=== PATIENT | female | born 1945 | race Caucasian/White ===

== ENCOUNTER 2020-03-26 12:44 | Emergency (ER) | payer OTHER, SELFPAY ==
[2020-03-26 13:18] VITALS: BP 132/64; PULSE 68; RESP 18; TEMP 36.6; O2SAT 92; BMI 34.7
--- NOTE | 2020-03-26 13:30 | XR_ITS ---
WS: [id number] PORTABLE CHEST HISTORY: sob COMPARISON: 11/11/2013 Mild elevation of the RIGHT hemidiaphragm similar to prior studies. Mild thickening along the RIGHT f issures. No pneumonia. No pleural effusion. Normal vasculature. Cardiac size: Normal. Mediastinum/Aorta: Mildly ectatic aorta. No osseous abnormality seen. XR/XR chest 1V portable [id number] IMPRESSION: Mild elevation of the RIGHT hemidiaphragm. No pneumonia.
--- NOTE | 2020-03-26 13:30 | XR_ITS ---
WS: [id number] RIGHT KNEE: 3 VIEW(S) TECHNIQUE: AP, oblique(s) and lateral. HISTORY: pain COMPARISON: None available. No fracture or dislocation. No joint space narrowing or osteophytes. No joint effusion. No soft tissue abnormality. XR/XR knee RT 3V* [id number] IMPRESSION: Normal RIGHT knee.
--- NOTE | 2020-03-26 13:30 | ECG_ITS ---
[facility] Test Date: 2020-03-26 Pat Name: Tosha Gonzalez Department: Room: Gender: Female Retail Cosmetics Sales Beauty Advisor: : 1945 Requested By: Florentino Jeffery Order Number: [id number] Luly MD: Robi Little M.D. Measurements Intervals [place] Rate: 74 P: 35 [place]: 226 QRS: -10 QRSD: 79 T: 19 QT: 354 QTc: 395 Interpretive Statements SINUS RHYTHM WITH FIRST DEGREE AV BLOCK INFERIOR MYOCARDIAL INFARCTION [40+ ms Q WAVE AND/OR ST/T ABNORMALITY IN II/aVF], PROBABLY OLD INTERPRETATION BASED ON A DEFAULT AGE OF 40 YEARS No previous ECG available for comparison Electronically Signed On 03-26-2020 22:43:10 LOOSE HAND PACKER by Robi Little M.D. [email or web address] adult care [email or web address]/store/NU/[id number] f
--- NOTE | 2020-03-26 13:30 | XR_ITS ---
WS: [id number] RIGHT HIP HISTORY: pain COMPARISON: 06/17/2014 Right hip: No acute fracture or dislocation. No significant narrowing of the hip joint. No soft tissue abnormality. XR/XR hip RT 2-3V wo/w pel* [id number] IMPRESSION: 1. No hip fracture. 2. No arthritis.
--- NOTE | 2020-03-26 13:33 | W.ED.DIZZY ---
HPI - Dizziness General: Chief Complaint: Dizziness Stated Complaint: SHARP PAINS IN LEGS, LOSING BALANCE Time Seen by Provider: 03/26/20 13:29 History of Present Illness: HPI Narrative: Patient is a 74-year-old female comes to the ED with dizziness and pain in right hip and right knee. Patient has a past medical history of fibromyalgia, hypertension, hyperlipidemia, hypothyroidism. patient says the dizziness started approximately 1 month ago and has continued to get worse. She describes the dizziness as a wobbly feeling and denies any room spinning. Her right knee and right hip pain is nontraumatic and has been going on for a couple months. Denies any recent injury to cause worsening of pain. Patient is also complaining of increased shortness of breath upon exertion and when lying flat. Denies any fever, chills, chest pain, palpitations, nausea/vomiting, abdominal pain, diarrhea, constipation, blood in stool, dysuria or hematuria. She does endorse having some urinary dribbling. Associated symptoms: Denies chest pain, chills, headache(s), nausea, nasal congestion, palpitations or vomiting Associated neuro symptoms: Deny numbness in extremities Review of Systems Const: Denies: fever(s), chills or fatigue Eyes: Denies: change in vision or eye discomfort ENMT: Denies: throat pain, odynophagia, nasal discharge or nasal congestion Card: Reports: dyspnea on exertion and orthopnea; Denies: chest pain, palpitations, edema or swelling of feet/ankles Resp: Reports: dyspnea; Denies: productive cough or non-productive cough GI: Denies: abdominal pain, nausea, vomiting, diarrhea, constipation or hematochezia : Reports: dribbling; Denies: flank pain, dysuria or hematuria Musc: Reports: extremity pain (Right hip and right knee pain.); Denies: neck pain, back pain or extremity swelling Skin/Breast: Denies: rash or new lesions Neuro: Denies: headache(s), numbness in extremities or weakness in extremities Physical Exam Const: COMMON NORMALS: no acute distress, patient oriented x3 and alert GENERAL APPEARANCE: cooperative and comfortable HENMT: COMMON NORMALS: normocephalic HEAD & SCALP: normocephalic MOUTH: Normal oral and palatal mucosa present THROAT: posterior oropharynx normal and uvula midline Eye: COMMON NORMALS: Equal, round and reactive pupils present PUPIL: Yes Equal, round and reactive pupils present Neck/C-Spine: COMMON NORMALS: supple GENERAL: Yes normal visual inspection Resp: COMMON NORMALS: normal respiratory effort, No retractions, No use of accessory muscles and clear to auscultation bilaterally AUSCULTATION: clear to auscultation bilaterally Cardio: COMMON NORMALS: regular rate, S1 normal heart sound present, S2 normal heart sound present, No gallops present (Cardio), No clicks present (Cardio), No murmurs present (Cardio) and Peripheral pulses 2+ throughout RATE: regular rate RHYTHM: abnormal rhythm irregularly irregular HEART SOUNDS: S1 normal heart sound present and S2 normal heart sound present PERIPHERAL PULSES: Peripheral pulses 2+ throughout GI: COMMON NORMALS: Normal to inspection, nondistended, normoactive bowel sounds present, Soft to palpation, non-tender and no masses PALPATION: Yes Soft to palpation : COMMON NORMALS: Yes no CVA tenderness BLADDER/KIDNEY EXAM: Yes no CVA tenderness Back/Pelvis: COMMON NORMALS: no CVA tenderness Extremity: COMMON NORMALS: no pedal edema NARRATIVE EXTREMITY EXAM: Right knee was remarkable for tenderness to palpation all throughout the ED joint. No other significant exam findings. Neurovascular intact. Right hip was tender to the touch but no other significant exam findings seen. Neurovascular intact. GENERAL: Yes normal exam except as noted Neuro: COMMON NORMALS: patient oriented x3, CN's II-XII intact bilaterally, moves all extremities, no focal motor deficits and no sensory deficits noted SENSORIUM/ORIENTATION: Yes alert Skin: GENERAL SKIN EXAM: dry skin Course Vital Signs: Vital signs: Vital Signs Temperature 97.9 F 03/26/20 13:18 Pulse Rate 76 03/26/20 16:33 Respiratory Rate 18 03/26/20 13:18 Blood Pressure 103/68 03/26/20 16:33 Pulse Oximetry 92 03/26/20 16:33 MDM - Dizziness MDM Narrative: Medical decision making narrative: Patient is a 74-year-old female comes to the ED with dizziness, shortness of breath and right knee and right hip pain. Patient has a past medical history of fibromyalgia, hyperlipidemia, GERD, hypertension. On exam patient appeared to be in no acute distress or pain. Patient denied any fever, chills, chest pain and said that her shortness of breath is chronic issue along with her right knee and right hip pain. She says she has had episodes of feeling off balance lately. CBC was unremarkable. Patient had a creatinine of 1.6 and rest of CMP is unremarkable. I am unaware of patient's history of labs so not sure what her creatinine baseline level is. X-ray of right hip and knee showed no acute fractures or findings. CT of head showed no acute findings. Chest x-ray showed no acute findings. EKG showed sinus rhythm with first-degree AV block and no ST segment elevation or depression seen. Troponins negative vitals stable and patient is safe to be discharged home. Patient was told to have her creatinine level checked again at her PCP in 3 to 5 days. Follow-up with PCP 7 to 10 days for reevaluation. Drink plenty of fluids and stay hydrated. Return to ED precautions given. Patient understood and agreed with plan. Lab Data: Attestation: I reviewed the patient's lab results. Labs: Lab Results 03/26/20 03/26/20 03/26/20 Range/Units 14:05 14:05 14:05 WBC 11.7 H (4.0-10.0) 10^3/ uL RBC 4.10 (4.1-5.3) 10^6/u L Hgb 12.5 (11.5-15.3) g/dL Hct 38.9 (37.0-47.0) % MCV 94.9 (81-99) fL MCH 30.5 (28.0-34.0) pg MCHC 32.1 (30.0-36.0) g/dL RDW 12.9 (12.1-15.1) % Plt Count 285 (130-400) 10^3/c mm MPV 9.4 (7.4-10.4) fL Neut % (Auto) 69.5 % Lymph % (Auto) 19.1 % Shelby % (Auto) 6.8 % Eos % (Auto) 3.7 % Baso % (Auto) 0.5 % Neut # (Auto) 8.13 H (1.8-7.7) 10^3/u L Lymph # (Auto) 2.2 (0.8-4.8) 10^3/u L Shelby # (Auto) 0.8 (0.2-0.9) 10^3/u L Eos # (Auto) 0.4 (0.0-0.8) 10^3/u L Baso # (Auto) 0.1 (0.0-0.1) 10^3/u L Nucleated RBC % (a uto) 0 % Nucleated RBCs # 0.0 /100WBC Sodium 133 L (136-145) mmol/L Potassium 5.1 (3.5-5.1) mmol/L Chloride 98 (98-107) mmol/L Carbon Dioxide 27 (22-29) mmol/L Anion Gap 13.1 (5-19) BUN 36 H (8-23) mg/dL Creatinine 1.6 H (0.5-0.9) mg/dL GFR Calculation Not Reportable Glucose 93 (65-115) mg/dL Calculated Osmolal ity 284 L (285-295) mOsm/k g Calcium 9.7 (8.5-10.5) mg/dL Total Bilirubin 0.4 (0.15-1.2) mg/dL AST 27 (0-32) U/L ALT 26 (0-33) U/L Alkaline Phosphata se 67 (35-105) IU/L Troponin T Baselin e 12 H (0-10) ng/L Troponin T 120 Min [place] (0-10) ng/L Delta Troponin T (0-10) ABS# NT-Pro-B Natriuret Pep 60 (0-450) pg/mL Total Protein 6.5 L (6.6-8.7) g/dL Albumin 4.0 (3.5-5.2) g/dL Globulin 2.5 (1.3-4.6) g/dL Urine Color (Yellow) Urine Appearance (CLEAR) Urine pH (5-7) Ur Specific Gravit y (1.005-1.030) Urine Protein (Negative) Urine Glucose (UA) (Normal) Urine Ketones (Negative) Urine Blood (Negative) Urine Nitrate (Negative) Urine Bilirubin (Negative) Urine Urobilinogen (Negative) mg/dL Ur Leukocyte Sherice ase (Negative) Urine RBC (0-2) /hpf Urine WBC (0-5) /hpf Ur Squamous Epith Cells (0-5) /hpf Amorphous Sediment Urine Bacteria (NONE) /hpf 03/26/20 03/26/20 Range/Units 14:20 14:33 WBC (4.0-10.0) 10^3/ uL RBC (4.1-5.3) 10^6/u L Hgb (11.5-15.3) g/dL Hct (37.0-47.0) % MCV (81-99) fL MCH (28.0-34.0) pg MCHC (30.0-36.0) g/dL RDW (12.1-15.1) % Plt Count (130-400) 10^3/c mm MPV (7.4-10.4) fL Neut % (Auto) % Lymph % (Auto) % Shelby % (Auto) % Eos % (Auto) % Baso % (Auto) % Neut # (Auto) (1.8-7.7) 10^3/u L Lymph # (Auto) (0.8-4.8) 10^3/u L Shelby # (Auto) (0.2-0.9) 10^3/u L Eos # (Auto) (0.0-0.8) 10^3/u L Baso # (Auto) (0.0-0.1) 10^3/u L Nucleated RBC % (a uto) % Nucleated RBCs # /100WBC Sodium (136-145) mmol/L Potassium (3.5-5.1) mmol/L Chloride (98-107) mmol/L Carbon Dioxide (22-29) mmol/L Anion Gap (5-19) BUN (8-23) mg/dL Creatinine (0.5-0.9) mg/dL GFR Calculation Glucose (65-115) mg/dL Calculated Osmolal ity (285-295) mOsm/k g Calcium (8.5-10.5) mg/dL Total Bilirubin (0.15-1.2) mg/dL AST (0-32) U/L ALT (0-33) U/L Alkaline Phosphata se (35-105) IU/L Troponin T Baselin e (0-10) ng/L Troponin T 120 Min [place] 11.49 H (0-10) ng/L Delta Troponin T -0.51 L (0-10) ABS# NT-Pro-B Natriuret Pep (0-450) pg/mL Total Protein (6.6-8.7) g/dL Albumin (3.5-5.2) g/dL Globulin (1.3-4.6) g/dL Urine Color Yellow (Yellow) Urine Appearance Clear (CLEAR) Urine pH 5 (5-7) Ur Specific Gravit y 1.010 (1.005-1.030) Urine Protein Neg (Negative) Urine Glucose (UA) Norm (Normal) Urine Ketones Negative (Negative) Urine Blood Neg (Negative) Urine Nitrate Negative (Negative) Urine Bilirubin Neg (Negative) Urine Urobilinogen Norm (Negative) mg/dL Ur Leukocyte Sherice ase Negative (Negative) Urine RBC 0-4 H (0-2) /hpf Urine WBC 0-4 H (0-5) /hpf Ur Squamous Epith Cells 0-4 H (0-5) /hpf Amorphous Sediment Not Reportable Urine Bacteria 1+ H (NONE) /hpf Imaging Data^: CXR: Attestation: I personally reviewed and interpreted this imaging study as follows: Radiologist's impression: [address] [address] XRay Report Signed Patient: Tosha Gonzalez Unit #: [id number] : 1945 Age/Sex: 74 / F ADM Date: 03/26/20 Loc: ER Room/Bed: Attending Dr: Ordering Provider/Ordering MD: Florentino Jeffery Date of Service: 03/26/20 Procedure(s): XR chest 1V portable [id number] Accession Number(s): [id number] Report Number: [id number] WS: [id number] PORTABLE CHEST HISTORY: sob COMPARISON: 11/11/2013 Mild elevation of the RIGHT hemidiaphragm similar to prior studies. Mild thickening along the RIGHT fissures. No pneumonia. No pleural effusion. Normal vasculature. Cardiac size: Normal. Mediastinum/Aorta: Mildly ectatic aorta. No osseous abnormality seen. XR/XR chest 1V portable [id number] IMPRESSION: Mild elevation of the RIGHT hemidiaphragm. No pneumonia. Dictated By: Roselyn Romero DO Signed By: Roselyn Romero DO Signed Date/Time: 03/26/20 1408 DD/ 06 Xray Ortho: Attestation: I personally reviewed and interpreted this imaging study as follows: Radiologist's impression: [email or web address] [address] [place] [address]. [place] [address] XRay Report Signed Patient: Tosha Gonzalez Unit #: [id number] : 1945 Age/Sex: 74 / F ADM Date: 03/26/20 Loc: ER Room/Bed: Attending Dr: Ordering Provider/Ordering MD: Florentino Jeffery Date of Service: 03/26/20 Procedure(s): XR knee RT 3V* [id number] Accession Number(s): [id number] Report Number: [id number] WS: [id number] RIGHT KNEE: 3 VIEW(S) TECHNIQUE: AP, oblique(s) and lateral. HISTORY: pain COMPARISON: None available. No fracture or dislocation. No joint space narrowing or osteophytes. No joint effusion. No soft tissue abnormality. XR/XR knee RT 3V* [id number] IMPRESSION: Normal RIGHT knee. Dictated By: Roselyn Romero DO Signed By: Roselyn Romero DO Signed Date/Time: 03/26/201407 DD/ [address] [employer] [place] [address] XRay Report Signed Patient: Tosha Gonzalez Unit #: [id number] : 1945 Age/Sex: 74 / F ADM Date: 03/26/20 Loc: ER Room/Bed: Attending Dr: Ordering Provider/Ordering MD: Florentino Jeffery Date of Service: 03/26/20 Procedure(s): XR hip RT 2-3V wo/w pel* 14790 Accession Number(s): [id number] Report Number: [id number] WS: [id number] RIGHT HIP HISTORY: pain COMPARISON: 06/17/2014 Right hip: No acute fracture or dislocation. No significant narrowing of the hip joint. No soft tissue abnormality. XR/XR hip RT 2-3V wo/w pel* [id number] IMPRESSION: 1. No hip fracture. 2. No arthritis. Dictated By: Roselyn Romero DO Signed By: Roselyn Romero DO Signed Date/Time: 03/26/201408 DD/ 08 CT Head: Attestation: I personally reviewed and interpreted this imaging study as follows: Radiologist's impression: [address] [place] [address] CT Scan Report Signed Patient: Tosha Gonzalez Unit #: [id number] : 1945 Age/Sex: 74 / F ADM Date: 03/26/20 Loc: ER Room/Bed: Attending Dr: Ordering Provider/Ordering MD: Florentino Jeffery Date of Service: 03/26/20 Procedure(s): CT head wo con* 36796 Accession Number(s): [id number] Report Number: [id number] WS: [id number] CT HEAD NONCONTRAST HISTORY: dizziness TECHNIQUE: Contiguous axial imaging performed through the brain in 2.5 mm imaging. Bone and soft tissue windows. Sagittal and coronal reformats reviewed. All CT scans at [facility] use at least one of these dose optimization techniques: automated exposure control; mA and/or kV adjustment per patient size (includes targeted exams where dose is matched to clinical indication); or iterative reconstruction. DLP: 898.16 mGy.cm COMPARISON: None available. No acute intracranial hemorrhage, midline shift or mass effect. Mild atrophy and moderate chronic microvascular ischemic changes in the white matter. Ventricles: Normal size with no hydrocephalus. No inferior displacement of cerebellar tonsils. Paranasal sinuses: As visualized are clear. Mastoid air cells: Well pneumatized. Calvarium and scalp: Hyperostosis frontalis interna. CT/CT head wo con* [id number] IMPRESSION: 1. No acute intracranial hemorrhage or edema. 2. Mild atrophy with moderate microvascular ischemic disease. Dictated By: Roselyn Romero DO Signed By: Roselyn Romero DO Signed Date/Time: 03/26/201454 DD/ 52 EKG Data^: EKG 1: Attestation: I personally reviewed and interpreted this EKG as follows: EKG interpretation date: 03/26/20 Interpretation: Sinus rhythm with first-degree AV block, 74 bpm, no ST segment elevation or depression seen. EKG 2: Attestation: I personally reviewed and interpreted this EKG as follows: EKG interpretation date: 03/26/20 Interpretation: Normal sinus rhythm with A-V first-degree block, 77 bpm, no ST segment elevation or depression seen. Discharge Plan Discharge Patient Disposition: Home Clinical Impression: Increasing shortness of breath, Creatinine elevation Condition: Stable Prescriptions: No Action losartan 50 mg tablet 50 mg PO DAILY@08 RF: 0 atorvastatin 40 mg tablet 40 mg PO DAILY@20 RF: 0 gabapentin 600 mg tablet 600 mg PO BID@ RF: 0 tizanidine 2 mg tablet 2 mg PO BEDTIME@ RF: 0 trazodone 50 mg tablet 50 mg PO BEDTIME@ RF: 0 oxybutynin chloride 10 mg tablet extended release 24hr 10 mg PO DAILY@ RF: 0 hydrocodone-acetaminophen 5-325 mg tablet 1 tab PO TID PRN (Reason: Pain) RF: 0 meloxicam 15 mg tablet 15 mg PO DAILY@ RF: 0 famotidine 20 mg tablet 20 mg PO BID@ RF: 0 pantoprazole 40 mg tablet,delayed release (DR/EC) 40 mg PO DAILY@08 RF: 0 duloxetine 60 mg capsule,delayed release(DR/EC) 120 mg PO DAILY@08 RF: 0 Discharge Orders: Discharge ED (Routine); Ordered 03/26/20 Ordered By: Florentino Jeffery Referrals: Doe Benito MD [Primary Care Provider] - Discharge Diet: Regular Discharge Activity: Increase activity as tolerated Activity Restrictions/Additional Instructions: Follow-up with medical provider as directed. Follow-up with your PCP and have your creatinine level rechecked in the next 3 to 5 days. Make sure you are drinking plenty of fluids and staying hydrated. Continue taking all home medications as prescribed. Return to the ER or your medical provider if condition worsens. Please read and understand discharge instructions. If any questions, please ask. Coding Level of Care Code ED Manager Furniture for Chg Fwd Exam Comprehensive
[2020-03-26 14:18] LABS: Basophils # 0.1 10^3/uL (0.0-0.1); Basophils % 0.5 %; Eosinophils # 0.4 10^3/uL (0.0-0.8); Eosinophils % 3.7 %; Hematocrit 38.9 % (37.0-47.0); Hemoglobin 12.5 g/dL (11.5-15.3); Lymphocytes # 2.2 10^3/uL (0.8-4.8); Lymphocytes % 19.1 %; Mean Corpuscular HGB Conc 32.1 g/dL (30.0-36.0); Mean Corpuscular Hemoglobin 30.5 pg (28.0-34.0); Mean Corpuscular Volume 94.9 fL (81-99); Mean Platelet Volume 9.4 fL (7.4-10.4); Monocytes # 0.8 10^3/uL (0.2-0.9); Monocytes % 6.8 %; Neutrophils # 8.13 10^3/uL (1.8-7.7); Neutrophils % 69.5 %; Nucleated Red Blood Cells % 0 %; Platelet Count 285 10^3/cmm (130-400); Red Cell Distribution Width 12.9 % (12.1-15.1); White Blood Count 11.7 10^3/uL (4.0-10.0)
--- NOTE | 2020-03-26 14:19 | CT_ITS ---
WS: [id number] CT HEAD NONCONTRAST HISTORY: dizziness TECHNIQUE: Contiguous axial imaging performed through the brain in 2.5 mm imaging. Bone and soft tiss ue windows. Sagittal and coronal reformats reviewed. All CT scans at [facility] use at ast one of these dose optimization techniques: automated exposure control; mA and/or kV adjustment pe r patient size (includes targeted exams where dose is matched to clinical indication); or iterative r econstruction. DLP: 898.16 mGy.cm COMPARISON: None available. No acute intracranial hemorrhage, midline shift or mass effect. Mild atrophy and moderate chronic microvascular ischemic changes in the white matter. Ventricles: Normal size with no hydrocephalus. No inferior displacement of cerebellar tonsils. Paranasal sinuses: As visualized are clear. Mastoid air cells: Well pneumatized. Calvarium and scalp: Hyperostosis frontalis interna. CT/CT head wo con* [id number] IMPRESSION: 1. No acute intracranial hemorrhage or edema. 2. Mild atrophy with moderate microvascular ischemic disease.
[2020-03-26 14:34] VITALS: BP 130/65; PULSE 76; O2SAT 94
[2020-03-26 14:42] LABS: Troponin(5th) Baseline 12 ng/L (0-10)
[2020-03-26 14:49] LABS: Alanine Aminotransferase 26 U/L (0-33); Alkaline Phosphatase 67 IU/L (35-105); Anion Gap 13.1 (5-19); Aspartate Amino Transferase 27 U/L (0-32); Blood Urea Nitrogen 36 mg/dL (8-23); Calcium 9.7 mg/dL (8.5-10.5); Carbon Dioxide 27 mmol/L (22-29); Chloride 98 mmol/L (98-107); Globulin 2.5 g/dL (1.3-4.6); Glucose 93 mg/dL (65-115); NT Pro B Type Natriuretic Pept 60 pg/mL (0-450); Osmolality Calculated 284 mOsm/kg (285-295); Potassium 5.1 mmol/L (3.5-5.1); Sodium 133 mmol/L (136-145); Total Bilirubin 0.4 mg/dL (0.15-1.2); Total Protein 6.5 g/dL (6.6-8.7)
[2020-03-26 15:16] LABS: Bacteria Urine 1+ /hpf; Bilirubin Urine Neg (Negative); Blood Urine Neg (Negative); Glucose Urine UA Norm (Normal); Ketones Urine Negative (Negative); Leukocyte Esterase Urine Negative (Negative); Nitrate Urine Negative (Negative); Protein Urine Neg (Negative); RBC Urine 0-4 /hpf (0-2); Squamous Epithelial Cell Urine 0-4 /hpf (0-5); Urine Appearance Clear (CLEAR); Urine Color Yellow (Yellow); Urobilinogen Urine Norm (Negative); WBC Urine 0-4 /hpf (0-5); pH Urine 5 (5-7)
--- NOTE | 2020-03-26 15:30 | ECG_ITS ---
[facility] Test Date: 2020-03-26 Pat Name: Tosha Gonzalez Department: Room: Gender: Female Integrated Program Teacher: dania : 1945 Requested By: Florentino Jeffery Order Number: [id number] Luly MD: Robi Little M.D. Measurements Intervals [place] Rate: 77 P: 34 HI: 218 QRS: -18 QRSD: 84 T: 6 QT: 353 QTc: 402 Interpretive Statements SINUS RHYTHM WITH FIRST DEGREE AV BLOCK LOW QRS VOLTAGE IN PRECORDIAL LEADS [QRS DEFLECTION < 1.0 mV IN CHEST LEADS] POSSIBLE RIGHT VENTRICULAR CONDUCTION DELAY [RSR (QR) IN V1/V2] MINIMAL VOLTAGE CRITERIA FOR LVH, CONSIDER NORMAL VARIANT [MEETS CRITERIA IN ONE OF: R(aVL), S(V1), R(V5), R(V5/V6)+S(V1)] INFERIOR MYOCARDIAL INFARCTION [40+ ms Q WAVE AND/OR ST/T ABNORMALITY IN II/aVF], PROBABLY OLD Compared to ECG 03/26/2020 14:25:25 Low QRS voltage now present Myocardial infarct finding still present Electronically Signed On 03-26-2020 22:56:03 ROUTE SERVICE MANAGER by Robi Little M.D. [id number]
[2020-03-26] MEDS: sodium chloride 0.9% 1,000 ML 999 ML IV (15:40)
[2020-03-26] MEDS: HYDROcodone-acetaminophen 7.5-325 mg Tablet 1 TAB PO (16:28)
[2020-03-26 16:33] VITALS: BP 103/68; PULSE 76; O2SAT 92
[2020-03-26 17:00] LABS: Troponin 5 2HR 11.49 ng/L (0-10); Troponin 5 2HR Delta -0.51 ABS# (0-10)
== END 2020-03-26 17:31 | disposition home or self-care (01) ==
PROVIDERS: Emergency Provider Physician Assistant; PCP Family Medicine
DX: R06.02 Shortness of breath (principal); R79.9 Abnormal finding of blood chemistry, unspecified
CPT/HCPCS: 12345; 70450; 71045; 73502; 73562; 80053; 81001; 83880; 84484; 85025; 93005; 96360; 99283; 99284; J7030